=== PATIENT | male | born 1980 | race Two or more races ===

== ENCOUNTER 2019-12-24 22:40 | Emergency (ER) | payer MEDICAID ==
[~2019-12-24] VITALS: Ht 167.6 cm; Wt 89.8 kg
--- NOTE | 2019-12-24 22:45 | NUR ---
PATIENT CHANGED INTO GOWN AND BELONGINGS REMOVED AND PLACED INTO LOCKER/SAFE.
--- NOTE | 2019-12-24 22:57 | NUR ---
ANNE MARIE FROM STREET TO ER BED 6. AAOX4. NOT IN RESP DISTRESS. AMBULATORY. BROUGHT IN FOR SUICAIDAL IDEATION WITH PLAN TO JUMP OFF A ROOF. PT ALSO VERBALIZED THAT HE IS HEARING VOICES AND TELLING HIM TO HURT HIMSELF. PT ALSO CLAIMS THAT HE WAS TESTED FOR COVID LAST WEEK W/ POSITITVE RESULT, PT IS UNABLE TO PROVIDE PROOF OF TESTING. PT IS NOT PRESENTING ANY RESP SYMPTOMS. PT IS STRIPPED OFF CLOTHING, GOWNED UP, ALL BELONGINGS PLACED IN LOCKER LOCATED IN UTILITY ROOM. 1:1 SITTER AT BEDSIDE. WAS AT BEDSIDE FOR EVAL. ORDERS RECEIVED NOTED AND CARRIED OUT. FISCAL SPECIALIST AT BEDSIDE FOR BLOOD DRAW. URINE COLLECTED AND SENT TO LAB.
[2019-12-24 22:58] LABS: BASOPHILS % (AUTO) 0.5 % (0.0-2.0); EOSINOPHILS % (AUTO) 0.4 % (0.0-6.0); HEMATOCRIT 44 % (39-51); HEMOGLOBIN 15.1 g/dL (13.5-17.5); LYMPHOCYTES # (AUTO) 1.5 /CMM (0.8-4.8); LYMPHOCYTES % (AUTO) 16.4 % (20.0-44.0); MEAN CORPUSCULAR HGB CONC 35 g/dl (31.0-36.0); MEAN CORPUSCULAR VOLUME 92 fL (80-96); MONOCYTES # (AUTO) 0.8 /CMM (0.1-1.30); MONOCYTES % (AUTO) 8.1 % (2.0-12.0); NEUTROPHILS # (AUTO) 6.9 /CMM (1.8-8.9); NEUTROPHILS % (AUTO) 74.6 % (43.0-81.0); PLATELET COUNT (AUTO) 244 /CMM (150-450); RED BLOOD CELL COUNT(AUTO) 4.77 MIL/uL (4.5-6.0); WHITE BLOOD COUNT (AUTO) 9.3 K/uL (4.3-11.0)
[2019-12-24 23:01] LABS: APPEARANCE,URINE Clear (CLEAR); BILIRUBIN,URINE Negative (NEGATIVE); BLOOD, URINE Negative Ery/uL (NEGATIVE); COLOR,URINE Yellow (YELLOW); KETONES,URINE Negative (NEGATIVE); LEUKOCYTE ESTERASE ,URINE Negative (NEGATIVE); NITRITE, URINE Negative (NEGATIVE); PROTEIN,URINE Negative (NEGATIVE); UGLUCOSE Negative (NEGATIVE); UROBILINOGEN,URINE 0.2 EU/dL (0.2)
[2019-12-24 23:10] LABS: CALCIUM, SERUM 8.7 mg/dL (8.5-10.1); CARBON DIOXIDE 30 mmol/L (21-32); CHLORIDE 99 mmol/L (98-107); CREATININE 1.1 mg/dL (0.6-1.3); GLUCOSE 88 mg/dL (74-106); POTASSIUM 4.2 mmol/L (3.5-5.1); SODIUM SERUM 134 mmol/L (136-145); UREA NITROGEN, BLOOD 17 mg/dL (7-18)
[2019-12-24 23:14] LABS: ALANINE AMINOTRANSFERASE 66 U/L (12-78); ALBUMIN 4.1 g/dL (3.4-5.0); ALCOHOL, BLOOD < 3 mg/dL (0-0); ALKALINE PHOSPHATASE 103 U/L (46-116); ASPARTATE AMINOTRANSFERASE 24 U/L (15-37); BILIRUBIN,DIRECT 0.1 mg/dL (0.0-0.2); BILIRUBIN,TOTAL 0.2 mg/dL (0.2-1.0)
[2019-12-24 23:15] LABS: ACETAMINOPHEN < 2 ug/ml (10-30); SALICYLATE 1.3 mg/dL (2.8-20.0)
--- NOTE | 2019-12-25 00:35 | NUR ---
ART, VENDING MACHINE ASSEMBLER AT BEDSIDE FOR EVALUATION
[2019-12-25] MEDS ORDERED: OLANZAPINE 5 MG TABLET ONE (00:43)
--- NOTE | 2019-12-25 00:54 | NUR ---
COVID TEST SENT TO LAB
[2019-12-25] MEDS ORDERED: OLANZAPINE 5 MG TABLET PO ONE (01:00)
--- NOTE | 2019-12-25 01:21 | NUR ---
Patient is resting comfortably in bed. Easily aroused. Pt provided with blanket. vss.
--- NOTE | 2019-12-25 04:43 | NUR ---
Patient is resting comfortably in bed with eyes closed. Easily aroused. VSS.
--- NOTE | 2019-12-25 05:14 | NUR ---
PATIENT ASLEEP. PROVIDED WITH WATER AND BLANKET.
--- NOTE | 2019-12-25 06:04 | NUR ---
PT RESTING. VSS.
--- NOTE | 2019-12-25 19:11 | NUR ---
ASSUMED CARE FOR PATIENT. PT IN BED, ON MONITOR, AND PULSE OX. VSS. PROVIDED WITH BLANKET. VSS.
--- NOTE | 2019-12-25 22:48 | NUR ---
PATIENT ASLEEP. VSS.
--- NOTE | 2019-12-26 01:25 | NUR ---
PT AWAKE, RESTING COMFORTBALY.
--- NOTE | 2019-12-26 03:11 | NUR ---
PT AMBULATED TO RESTROOM.
--- NOTE | 2019-12-26 05:26 | NUR ---
PT AWAKE, PROVIDED WITH FOOD. VSS.
--- NOTE | 2019-12-26 06:41 | NUR ---
PT ASLEEP. VSS. PROVIDED WITH WARM BLANKET.
--- NOTE | 2019-12-26 08:43 | NUR ---
PT IS AWAKE AND ALERT, NOT IN RESPIRATORY DISTRESS, V/S STABLE, KEPT RESTED AND COMFORTABLE, FOOD TRAY PROVIDED WILL CONTINUE TO MONITOR.
--- NOTE | 2019-12-26 10:05 | NUR ---
Pt resting comfortably, no acute s/s of distress noted. Updated pt with plan of care pending covid swab results. Pt agreeable with plan.
--- NOTE | 2019-12-26 12:15 | NUR ---
Pt resting comfortably. Provided with lunch. Pt appears calm and cooperative
--- NOTE | 2019-12-26 15:00 | NUR ---
Pt is observed pacing hallway. Reoriented to room
--- NOTE | 2019-12-26 16:54 | NUR ---
CALLED FOR FOOD TRAY.
--- NOTE | 2019-12-26 19:38 | NUR ---
FOOD AND WATER PROVIDED TO PT. PT RESTING COMFORTABLY IN BED. VITAL SIGNS STABLE. NO ACUTE DISTRESS NOTED AT THIS TIME. SITTER AT BEDSIDE, WILL CONTINUE TO MONITOR
--- NOTE | 2019-12-26 22:32 | NUR ---
PT RESTING COMFORTABLY IN BED. NAD NOTED. VSS. WILLC CONTINUE TO MONITOR. SITTER AT BEDSIDE FOR SAFETY.
[2019-12-27] MEDS ORDERED: diphenhydrAMINE HCL 25 MG CAPSULE PO ONE
[2019-12-27] MEDS ORDERED: diphenhydrAMINE HCL 50 MG CAPSULE ONE (00:09)
--- NOTE | 2019-12-27 01:18 | NUR ---
PATIENT IS AWAKE. PATIENT WAS RESTING BEFORE GETTING PATIENT'S ATTENTION. PATIENT DENIES PAIN AT THIS TIME. BREATHING EVENLY AND UNLABORED ON ROOM AIR. CONNECTED TO THE MONITOR. SITTER IS AT THE BEDSIDE.
--- NOTE | 2019-12-27 03:29 | NUR ---
PATIENT IS SLEEPING. EASILY AROUSABLE THROUGH TACTILE AND VERBAL STIMULI. CONNECTED TO MONITOR BREATHING EVENLY AND UNLABORED ON ROOM AIR. NOT IN ANY DISTRESS. SITTER AT BEDSIDE.
--- NOTE | 2019-12-27 09:13 | NUR ---
pt resting comfortably, ambulating to nurses station. Pt provided with breakfast tray. Will continue with plan to monitor; awaiting COVID result for placement in psych facility.
--- NOTE | 2019-12-27 19:16 | NUR ---
PT PROVIDED WITH WATER AND BLANKET. PT PLACED ON MONITOR AND PULSE OX. VSS.
--- NOTE | 2019-12-27 19:49 | NUR ---
NEGATIVE COVID RESULTS RECEIVED. PT STILL SUICIDAL AND REQUESTING VOLUNTARY ADMISSION TO PSYCH FACILITY. SPOKE WITH ASH FROM [facility], CLINICAL INFORMATION FAXED.
--- NOTE | 2019-12-27 22:26 | NUR ---
PATIENT IS AWAKE. PATIENT DOES NOT APPEAR TO BE IN ANY DISTRESS. BREATHING EVENLY AND UNLABORED ON ROOM AIR. CONNECTED TO THE MONITOR. SITTER AT BEDSIDE.
--- NOTE | 2019-12-28 00:53 | NUR ---
PT AMBULATED TO THE RESTROOM. VSS. PROVIDED WITH WATER
--- NOTE | 2019-12-28 04:44 | NUR ---
PT RESTING COMFORTABLY IN BED. VITAL SIGNS STABLE. NO ACUTE DISTRESS NOTED AT THIS TIME. SITTER AT BEDSIDE, WILL CONTINUE TO MONITOR
--- NOTE | 2019-12-28 05:26 | NUR ---
PT ASKED FOR WATER. PT PROVIDED WITH WATER AND WARM BLANKET.
[2019-12-28 07:05] VITALS: BP 125/77
--- NOTE | 2019-12-28 08:39 | NUR ---
GLUE WHEEL OPERATOR contacted Bj at [facility] to f/u regarding bed availability. Per Bj, they will have discharges at noon and will be able to accept pt after 12PM. GLUE WHEEL OPERATOR updated ED CRN Gener with aforementioned information.
--- NOTE | 2019-12-28 11:12 | NUR ---
ACCEPTED AT [facility]. # [id number] UNIT #1. DR. SHAH/DR. TRAVIS REPORT: [phone]
--- NOTE | 2019-12-28 11:15 | NUR ---
report given to zana. awaiting transport ambulance going to [facility].
--- NOTE | 2019-12-28 11:17 | NUR ---
CALLED [facility] FOR TRANSPORT TO [facility]. ETA 1200.
--- NOTE | 2019-12-28 11:32 | NUR ---
SPOKE WITH [facility]ESA NURSE. FAXED COPY OF COVID RESULT
--- NOTE | 2019-12-28 12:15 | NUR ---
pt transported to [facility] in stable condition.
== END 2019-12-28 12:16 ==
LOC: ER 22:43
DX: R45.851 Suicidal ideations (principal); R44.0 Auditory hallucinations; Z86.19 Personal history of other infectious and parasitic diseases
CPT/HCPCS: 36415; 80048; 80076; 80305; 80307; 80329; 81001; 85025; 99285; C9803; G0480; U0003; 81000-TC